=== PATIENT | male | born 1940 | race Caucasian/White ===

== ENCOUNTER 2018-08-30 11:54 | Observation (INO) ==
[2018-08-30 12:58] LABS: Hemoglobin A1C 10.9 % (4.00-6.0)
[2018-08-30 13:15] LABS: Albumin * 2.8 gm/dl (3.4-5.0); Anion Gap 15.9 mmol/L (6.8-13.8); BUN/Creatinine Ratio 19.5 (9.0-21.6); Bilirubin, Total 0.6 mg/dL (0.0-1.1); Ca. Corrected For Albumin 9.6 mg/dL (8.4-10.2); Carbon Dioxide 21.7 mmol/L (24-32.6); Chol/HDL Risk Ratio 2.8 mg/dL (3.3-5.0); Potassium 4.6 mmol/L (3.4-4.6); Total Protein 6.7 gm/dL (6.2-8.2)
[2018-08-30] MEDS: FUROSEMIDE 10 MG/ML VIAL IV SCH ×2 (16:20→22:27)
--- NOTE | 2018-08-30 23:31 | HP ---
Chief Complaint - Chief Complaint Date of Service: 08/30/18 Time of Service: 23:30 Chief Complaint: Shortness of breath, increased edema/weight History of Present Illness: Noa is a 78 yo male with known history of chronic systolic CHF with EF 20-25% who follows with Dr. Springer of Cardiology. Noa reports that he had on his own decreased his lasix from 40mg to 20mg because he was concerned his potassium would go to low. Since that time he has noticed increased weight, swelling in legs, and shortness of breath. He has gained about 20lbs in the past month. He was seen in the Cardiology clinic today by Dr. Springer who sent him over to Dr. Mcbride's clinic today to be admitted for diuresis for CHF exacerbation. He denies chest pain. Medical History (Updated 09/01/18 @ 11:54 by Anthony Kaur DO) Hypertension (Chronic) Onset Date: ~1959 Hyperlipemia (Chronic) Onset Date: Unknown Diabetes mellitus, type II (Chronic) Onset Date: ~2009 Chronic renal insufficiency (Chronic) Onset Date: Unknown Chronic kidney disease, stage III (moderate) (Chronic) Onset Date: ~02/2015 GFR-48 GFR -48 Cardiomyopathy (Chronic) Onset Date: ~01/2015 CAD (coronary artery disease) (Chronic) Onset Date: ~10/15/17 [facility]- post mid Promus 2.75 x 20mm drug eluting stent, with LAD WIRE BOUND BOX MACHINE OPERATOR and OM-2 WIRE BOUND BOX MACHINE OPERATOR Ascending aortic aneurysm (Chronic) Onset Date: Unknown History of stroke Onset Date: Unknown History of stroke with vestibular difficulties Colonoscopy refused Onset Date: Unknown Surgical History: Surgical History (Updated 08/30/18 @ 23:31 by Anthony Kaur DO) H/O echocardiogram Onset Date: ~02/09/15 EF 20-25% H/O hernia repair Onset Date: Unknown At age 4 Family History: Family History (Updated 02/02/18 @ 16:25 by Amy Bo) Father , Age 57 Cerebral hemorrhage Mother , Age 76 uremic poisioning Social History: Patient Lives/Resources With Spouse Utilized Preferred Language O[place]i Do you have any roman catholic or No cultural preference? Smoking Status Former smoker Have you smoked in the past 12 No months Do you dip or chew tobacco No (Last Updated 08/30/18 @ 14:55 by Keven Mcbride MD) No Social History Section defined Review Of Systems (GEN) - Review of Systems Generalized/Overall Review: Present: Weakness. Absent: Chills, Fever EENTM: Present: No Symptoms Reported Respiratory: Present: Cough, Shortness of Breath Cardiac: Present: Edema. Absent: Chest Pain, Palpitations, Syncope Abdominal: Absent: Nausea, Vomiting Genitourinary: Present: No Symptoms Reported Musculoskeletal: Present: No Symptoms Reported Neurological: Present: No Symptoms Reported Skin: Present: No Symptoms Reported Endocrine: Present: No Symptoms Reported Immunizations: IMMUNIZATION HX Immunizations Up to Date Yes History of Influenza Vaccine No Hx Pneumococcal Vaccination No Allergies/Adverse Reactions: Allergies Allergy/AdvReac Type Severity Reaction Status Date / Time No Known Allergies Allergy Verified 08/30/18 16:13 Home Medications: HOME MEDICATIONS Aspirin 81 mg PO DAILY 02/23/15 [Last Taken Unknown] Atorvastatin Calcium 40 mg PO DAILY 02/23/15 [Last Taken Unknown] Famotidine 20 mg PO DAILY 02/23/15 [Last Taken Unknown] carvedilol 25 mg tablet 25 mg PO BID 02/02/18 [Last Taken Unknown] furosemide 20 mg tablet 40 mg PO DAILY tab 03/02/18 [Last Taken Unknown] hydralazine 10 mg tablet 10 mg PO BID tab 03/02/18 [Last Taken Unknown] lisinopril 10 mg tablet 5 mg PO DAILY tab 03/02/18 [Last Taken Unknown] isosorbide mononitrate ER 30 mg tablet,extended release 24 hr 30 mg PO QAM #90 tab 05/18/18 [Last Taken Unknown] glimepiride 2 mg tablet 2 mg PO QAM #90 tab 08/02/18 [Last Taken Unknown] Exam - Exam Vital Signs: Vital Signs - Last Taken Temp 37.0 C 08/30/18 18:43 Pulse 78 08/30/18 18:43 Resp 18 08/30/18 18:43 BP 142/70 08/30/18 18:43 Pulse Ox 95 08/30/18 18:43 Constitutional: Present: Alert, Oriented x3, Cooperative ENT Exam: Present: hearing grossly normal Eye Exam: bilateral eye: normal inspection Respiratory: Present: chest non-tender, no respiratory distress, rales - bilateral base Cardiovascular/Chest: Present: regular rate, rhythm, no murmur Peripheral Pulses: radial (R): 2+, radial (L): 2+ Abdomen: Present: Normal bowel sounds, soft, nontender, nondistended Extremity: Present: lower extremity edema - 3+ bilateral edema Skin Exam: Present: normal color, warm/dry, no cyanosis Diagnostic Studies: Abnormal Lab Results 08/30/18 08/30/18 Range/Units 11:58 11:58 Carbon Dioxide 21.7 L (24-32.6) mmol/L Anion Gap 15.9 H (6.8-13.8) mmol/L BUN 33 H (6-23) mg/dL Creatinine 1.69 H (0.4-1.4) mg/dL Est GFR (Non-Af Amer) 42 L (60-130) mL/min Random Glucose 224 H (70-110) mg/dL Hemoglobin A1c 10.9 H (4.00-6.0) % ALT 16 L (19-67) U/L B-Natriuretic Peptide 90571 H (5-650) pg/mL Albumin 2.8 L (3.4-5.0) gm/dl LDL Cholesterol 44 L (70-130) mg/dL HDL Cholesterol 36 L (40-60) mg/dL Cholesterol/HDL Ratio 2.8 L (3.3-5.0) mg/dL Laboratory Results Sodium 139 mmol/L (132-142) 08/30/18 11:58 Plasma Sodium 141 mmol/L (130-142) 08/30/18 11:58 Potassium 4.6 mmol/L (3.4-4.6) 08/30/18 11:58 Chloride 106 mmol/L (97-106) 08/30/18 11:58 Carbon Dioxide 21.7 mmol/L (24-32.6) L 08/30/18 11:58 Anion Gap 15.9 mmol/L (6.8-13.8) H 08/30/18 11:58 BUN 33 mg/dL (6-23) H 08/30/18 11:58 Creatinine 1.69 mg/dL (0.4-1.4) H 08/30/18 11:58 Est GFR (Non-Af Amer) 42 mL/min (60-130) L 08/30/18 11:58 BUN/Creatinine Ratio 19.5 (9.0-21.6) 08/30/18 11:58 Random Glucose 224 mg/dL (70-110) H 08/30/18 11:58 Mean Blood Glucose 277 mg/dL 08/30/18 11:58 Hemoglobin A1c 10.9 % (4.00-6.0) H 08/30/18 11:58 Calcium 9.0 mg/dL (7.9-10.9) 08/30/18 11:58 Calcium Adj for Albumin 9.6 mg/dL (8.4-10.2) 08/30/18 11:58 Total Bilirubin 0.6 mg/dL (0.0-1.1) 08/30/18 11:58 AST 13 U/L (0-48) 08/30/18 11:58 ALT 16 U/L (19-67) L 08/30/18 11:58 Alkaline Phosphatase 103 U/L (50-170) 08/30/18 11:58 B-Natriuretic Peptide 61294 pg/mL (5-650) H 08/30/18 11:58 Total Protein 6.7 gm/dL (6.2-8.2) 08/30/18 11:58 Albumin 2.8 gm/dl (3.4-5.0) L 08/30/18 11:58 Triglycerides 103 mg/dL (30-200) 08/30/18 11:58 Cholesterol 101 mg/dL (0-200) 08/30/18 11:58 LDL Cholesterol 44 mg/dL (70-130) L 08/30/18 11:58 VLDL Cholesterol 21 mg/dL (5-40) 08/30/18 11:58 HDL Cholesterol 36 mg/dL (40-60) L 08/30/18 11:58 Cholesterol/HDL Ratio 2.8 mg/dL (3.3-5.0) L 08/30/18 11:58 Assessment/Plan - Narrative Narrative: Noa is a 78 yo male with acute on chronic systolic CHF exacerbation due to decreasing his lasix from 40mg to 20mg. Will Diurese with IV 40mg lasix q6hr and monitor edema, weight, shortness of breath, and renal function. Will admit to observation. There is not respiratory distress of failure to meet inpatient criteria. - Assessment/Plan (1) CHF exacerbation Problem: Acute Qualifiers: Heart failure type: systolic Qualified Code(s): I50.23 - Acute on chronic systolic (congestive) heart failure (2) Diabetes mellitus, type II Problem: Chronic Qualifiers: Diabetes mellitus nursing home insulin use: without termite control service representative use Diabetes mellitus complication status: with other specified complication Qualified Code(s): E11.69 - Type 2 diabetes mellitus with other specified complication (3) Chronic kidney disease, stage III (moderate) Problem: Chronic (4) Cardiomyopathy Problem: Chronic Qualifiers: Cardiomyopathy type: ischemic Qualified Code(s): I25.5 - Ischemic cardiomyopathy (5) CAD (coronary artery disease) Problem: Chronic Qualifiers: Coronary Disease-Associated Artery/Lesion type: [place] artery [place] vs. transplanted heart: [place] heart Associated angina: without angina Qualified Code(s): I25.10 - Atherosclerotic heart disease of [place] coronary artery without angina pectoris
[2018-08-31] MEDS: FUROSEMIDE 10 MG/ML VIAL IV SCH ×4 (04:09→21:42)
[2018-08-31] MEDS: hydrALAZINE HCL 10 MG TABLET PO SCH ×2 (10:27→21:42)
[2018-08-31] MEDS: CARVEDILOL 25 MG TABLET PO SCH ×2 (10:28→21:42)
[2018-08-31] MEDS: ASPIRIN 81 MG TAB.CHEW PO SCH (10:28)
[2018-08-31] MEDS: LISINOPRIL 5 MG TABLET PO SCH (10:29)
[2018-08-31] MEDS: FAMOTIDINE 20 MG TABLET PO SCH (10:29)
[2018-08-31 15:09] LABS: Albumin * 2.5 gm/dl (3.4-5.0); Anion Gap 13.8 mmol/L (6.8-13.8); BUN/Creatinine Ratio 19.2 (9.0-21.6); Bilirubin, Total 0.5 mg/dL (0.0-1.1); Ca. Corrected For Albumin 9.5 mg/dL (8.4-10.2); Calcium * 8.6 mg/dL (7.9-10.9); Carbon Dioxide 24.3 mmol/L (24-32.6); Potassium 4.1 mmol/L (3.4-4.6); Total Protein 5.7 gm/dL (6.2-8.2)
[2018-08-31] MEDS ORDERED: ROSUVASTATIN CALCIUM 20 MG TABLET PO SCH (21:00)
--- NOTE | 2018-08-31 23:41 | PN ---
Subjective - Date and Time Seen Date: 08/31/18 Time: 09:00 Subjective Narrative: Noa reports feeling better but still short of breath and having leg swelling. He does not feel is breathing is doing quite well enough to go home. Objective - Vitals Vitals: Last Vital Signs Temp 36.7 C 08/31/18 19:04 Pulse 75 08/31/18 21:42 Resp 18 08/31/18 19:04 BP 148/78 08/31/18 21:42 Pulse Ox 95 08/31/18 19:04 - Abnormal Lab Findings Abnormal Lab Findings: Abnormal Lab Results 08/31/18 Range/Units 14:20 BUN 33 H (6-23) mg/dL Creatinine 1.72 H (0.4-1.4) mg/dL Est GFR (Non-Af Amer) 41 L (60-130) mL/min Random Glucose 272 H (70-110) mg/dL ALT 14 L (19-67) U/L Total Protein 5.7 L (6.2-8.2) gm/dL Albumin 2.5 L (3.4-5.0) gm/dl - Exam Constitutional: Present: Alert, Oriented x3, Cooperative ENT Exam: Present: hearing grossly normal Respiratory: Present: rales - bilateral bases Cardiovascular/Chest: Present: regular rate, rhythm, no murmur Abdomen: Present: Normal bowel sounds, soft, nontender, nondistended Extremity: Present: lower extremity edema - 2+ bilateral Skin Exam: Present: normal color, warm/dry, no cyanosis Assessment/Plan Plan Narrative: Improving, but still too short of breath to discharge to home. Will continue diuresis. Anticipate discharge to home tomorrow. - Problems/Diagnosis (1) Acute on chronic systolic CHF (congestive heart failure) Problem: Acute (2) CAD (coronary artery disease) Problem: Chronic Qualifiers: Coronary Disease-Associated Artery/Lesion type: [place] artery [place] vs. transplanted heart: [place] heart Associated angina: without angina Qualified Code(s): I25.10 - Atherosclerotic heart disease of [place] coronary artery without angina pectoris (3) Cardiomyopathy Problem: Chronic Qualifiers: Cardiomyopathy type: ischemic Qualified Code(s): I25.5 - Ischemic cardiomyopathy (4) Chronic kidney disease, stage III (moderate) Problem: Chronic (5) Diabetes mellitus, type II Problem: Chronic Qualifiers: Diabetes mellitus detention insulin use: without technician terminal and repeater use Diabetes mellitus complication status: with other specified complication Qualified Code(s): E11.69 - Type 2 diabetes mellitus with other specified complication
[2018-09-01] MEDS: FUROSEMIDE 10 MG/ML VIAL IV SCH ×2 (04:25→09:59)
[2018-09-01] MEDS ORDERED: GLIMEPIRIDE 2 MG TABLET PO SCH (09:00)
[2018-09-01] MEDS ORDERED: ISOSORBIDE MONONITRATE 30 MG TAB.SR.24H PO SCH (09:00)
[2018-09-01 09:20] LABS: Albumin * 2.6 gm/dl (3.4-5.0); BUN/Creatinine Ratio 18.5 (9.0-21.6); Bilirubin, Total 0.5 mg/dL (0.0-1.1); Ca. Corrected For Albumin 10.1 mg/dL (8.4-10.2); Calcium * 9.3 mg/dL (7.9-10.9); Carbon Dioxide 28.1 mmol/L (24-32.6); Potassium 4.1 mmol/L (3.4-4.6); Total Protein 6.3 gm/dL (6.2-8.2)
[2018-09-01] MEDS: hydrALAZINE HCL 10 MG TABLET PO SCH (09:23)
[2018-09-01] MEDS: FAMOTIDINE 20 MG TABLET PO SCH (09:24)
[2018-09-01] MEDS: CARVEDILOL 25 MG TABLET PO SCH (09:24)
[2018-09-01] MEDS: LISINOPRIL 5 MG TABLET PO SCH (09:24)
[2018-09-01] MEDS: ASPIRIN 81 MG TAB.CHEW PO SCH (09:24)
--- NOTE | 2018-09-01 11:54 | DS ---
(1) CHF exacerbation Problem: Acute Description of Stay: Noa is a 78 yo male that had recently decreased his lasix from 40mg to 20mg daily on his own. He has since gained about 20lbs. He was seen by his fruit thinner machine operator this week in clinic who sent him to be admitted. He was admitted and placed on Lasix 40mg IV q6hr and diuresed well. He is feeling better today with less edema and resolved shortness of breath. He feels ready to go home. He will resume his Lasix at 40mg daily. Procedures Performed: none Results and Findings: Lab Pending Results 08/30/18 11:58: Sodium 139, Plasma Sodium 141, Potassium 4.6, Chloride 106, Carb on Dioxide 21.7 L, Anion Gap 15.9 H, BUN 33 H, Creatinine 1.69 H, Est GFR (Non- Af Amer) 42 L, BUN/Creatinine Ratio 19.5, Random Glucose 224 H, Calcium 9.0, Calcium Adj for Albumin 9.6, Total Bilirubin 0.6, AST 13, ALT 16 L, Alkaline Phosphatase 103, B-Natriuretic Peptide 68867 H, Total Protein 6.7, Albumin 2.8 L, Triglycerides 103, Cholesterol 101, LDL Cholesterol 44 L, VLDL Cholesterol 21, HDL Cholesterol 36 L, Cholesterol/HDL Ratio 2.8 L 08/30/18 11:58: Mean Blood Glucose 277, Hemoglobin A1c 10.9 H 08/31/18 14:20: Sodium 137, Plasma Sodium 140, Potassium 4.1, Chloride 103, Carbon Dioxide 24.3, Anion Gap 13.8, BUN 33 H, Creatinine 1.72 H, Est GFR (Non- Af Amer) 41 L, BUN/Creatinine Ratio 19.2, Random Glucose 272 H, Calcium 8.6, Calcium Adj for Albumin 9.5, Total Bilirubin 0.5, AST 14, ALT 14 L, Alkaline Phosphatase 93, Total Protein 5.7 L, Albumin 2.5 L 09/01/18 08:59: Sodium 139, Plasma Sodium 141, Potassium 4.1, Chloride 103, Carbon Dioxide 28.1, Anion Gap 12.0, BUN 34 H, Creatinine 1.84 H, Est GFR (Non- Af Amer) 38 L, BUN/Creatinine Ratio 18.5, Random Glucose 253 H, Calcium 9.3, Calcium Adj for Albumin 10.1, Total Bilirubin 0.5, AST 13, ALT 15 L, Alkaline Phosphatase 96, Total Protein 6.3, Albumin 2.6 L Discharge Location: Home Disposition: Home self-care Condition: Good Discharge Activity: Activity as tolerated Discharge Diet: Low salt Referrals: Keven Mcbride MD [Primary Care Provider] - One Week Problem Oriented Discharge Instructions to Patient/Family: CHF Patient Instructions Additional Patient Instructions (free text): -Please make TCM appointment unless intermediate discharge. Thank you! Ashli @ [facility]:[id number]. [facility] contact number [phone]. When you call this number you can schedule an appointment to talk with someone about Medicare options. Complete Home Medications List: Complete Home Medication List: Aspirin 81 mg PO DAILY 02/23/15 Atorvastatin Calcium 40 mg PO DAILY 02/23/15 Famotidine 20 mg PO DAILY 02/23/15 carvedilol 25 mg tablet 25 mg PO BID 02/02/18 furosemide 20 mg tablet 40 mg PO DAILY tab 03/02/18 hydralazine 10 mg tablet 10 mg PO BID tab 03/02/18 lisinopril 10 mg tablet 5 mg PO DAILY tab 03/02/18 isosorbide mononitrate ER 30 mg tablet,extended release 24 hr 30 mg PO QAM #90 tab 05/18/18 glimepiride 2 mg tablet 2 mg PO QAM #90 tab 08/02/18
[2018-09-01 15:26] VITALS: BP 125/68
== END 2018-09-01 15:15 | disposition home or self-care (01) ==
LOC: MS 11:54 → LAB 11:54
PROVIDERS: ADMIT Family Medicine; ATTEND Family Medicine
DX: E11.69 Type 2 diabetes mellitus with other specified complication; N18.3 Chronic kidney disease, stage 3 (moderate); I25.5 Ischemic cardiomyopathy; I25.10 Atherosclerotic heart disease of native coronary artery without angina pectoris; I50.23 Acute on chronic systolic (congestive) heart failure
CPT/HCPCS: 36415; 80053; 80061; 83036; 83519; 83880; 96374; 96375; G0378; G0379

== ENCOUNTER 2019-05-11 15:18 | Observation (INO) ==
[2019-05-11] MEDS ORDERED: FUROSEMIDE 10 MG/ML VIAL IV PRN ×2 (16:05→16:09)
--- NOTE | 2019-05-11 16:49 | PN ---
Vero Note - Interim Date: 05/11/19 Time: 16:47 Narrative: 05/11/19 16:47 I saw and examined Noa Nicolas on 05/11/2019 in the [facility] floor and I agree with the assessment and physical finding of Dr. Mcbride who saw him in the office. His ejection fraction is only 20 to 25%. His hemoglobin is down to 5.7 from 11.7 two months ago. His BNP is 20,000+. With a history of 20 pound weight gain in the last month. His BUN/creatinine is 90/2.5 and while this could be prerenal from his congestive heart failure we will need to consider upper GI bleed as his hemoglobin drop from 11.7 to 5.7 in 2 months time. We will get surgical consult with . We will diurese him and also give him 2 units of packed RBC with Lasix after each bag. We will refer him to palliative/hospice care. Dr. Mcbride's office notes will serve as the H&P for this patient on this admission.
[2019-05-11] MEDS ORDERED: PANTOPRAZOLE SODIUM 40 MG in NORMAL SALINE 100 ML IV SCH (17:00)
[2019-05-11] MEDS ORDERED: FUROSEMIDE 10 MG/ML VIAL IV ONE (17:05)
[2019-05-11] MEDS: hydrALAZINE HCL 10 MG TABLET PO SCH (23:37)
[2019-05-11] MEDS: CARVEDILOL 25 MG TABLET PO SCH (23:38)
[2019-05-12 01:25] LABS: Hemoglobin 6.3 gm/dL (13.5-18.0)
[2019-05-12 01:26] LABS: Hematocrit 20.4 % (42.0-52.0)
[2019-05-12] MEDS ORDERED: GLIMEPIRIDE 2 MG TABLET PO SCH (07:00)
[2019-05-12] MEDS ORDERED: ROSUVASTATIN CALCIUM 20 MG TABLET PO SCH (09:00)
[2019-05-12] MEDS ORDERED: ASPIRIN 81 MG TAB.CHEW PO SCH (09:00)
[2019-05-12] MEDS ORDERED: FAMOTIDINE 20 MG TABLET PO SCH (09:00)
[2019-05-12] MEDS ORDERED: LISINOPRIL 5 MG TABLET PO SCH (09:00)
[2019-05-12] MEDS ORDERED: ISOSORBIDE MONONITRATE 30 MG TAB.SR.24H PO SCH (09:00)
--- NOTE | 2019-05-12 09:05 | CONS ---
[facility] - General Date of Service: 05/12/19 Source: patient, family, RN/MD, RN notes reviewed, old records Exam Limitations: no limitations - History of Present Illness Initial Comments: He went to see Dr. Mcbride ago because he was very fatigued with dyspnea on exertion and noticed marked swelling in his legs. He was found to have a hemoglobin of 5.7 with microcytic hypochromic indices, down from 11.7 in February 2018. He was admitted and has been transfused. His hemoglobin has risen to 6.3. He has never had a colonoscopy Associated Symptoms: weakness Allergies/Adverse Reactions: Allergies No Known Allergies Allergy (Verified 05/11/19 14:52) Home Medications: Home Medications Medication Instructions Recorded Last Taken Famotidine 20 mg PO DAILY 02/23/15 Unknown carvedilol 25 mg tablet 25 mg PO BID 02/02/18 Unknown lisinopril 10 mg tablet 5 mg PO DAILY tab 03/02/18 Unknown hydralazine 10 mg tablet 10 mg PO BID #180 tab 04/17/19 Unknown Isosorbide Mononitrate [Imdur] 1 tab PO DAILY 05/11/19 Unknown Furosemide 80 mg PO DAILY #30 tab 05/12/19 Unknown Potassium Chloride [Klor-Con 10] 10 meq PO DAILY #30 tablet.sa 05/12/19 Unknown glipiZIDE [Glipizide] 5 mg PO DAILY #30 tab 05/12/19 Unknown traMADol HCL [Tramadol HCl] 50 mg PO QID PRN #30 tab 05/12/19 Unknown Procedures Injection or infusion of thrombolytic agent (02/09/15) Measurement of Arterial Saturation, Peripheral, External Approach (02/09/15) Measurement of systemic arterial blood gases (02/09/15) Medications - Medications Current Medications: Current Medications Carvedilol (Coreg) 25 mg PO BID [facility] Stop: 06/10/19 21:01 Last Admin: 05/11/19 23:38 Dose: 25 mg Documented by: Furosemide (Lasix) 20 mg IV ONCE PRN PRN Reason: AFTER 2ND UNIT OF BLOOD Stop: 05/12/19 09:00 Last Admin: 05/12/19 00:22 Dose: 20 mg Documented by: Hydralazine HCl (Apresoline) 10 mg PO BID [facility] Stop: 06/10/19 21:01 Last Admin: 05/11/19 23:37 Dose: Not Given Documented by: Pantoprazole Sodium 40 mg/ (Sodium Chloride) 100 mls @ 400 mls/hr IV Q24H TYRELL Stop: 06/10/19 17:01 Last Infusion: 05/11/19 17:55 Dose: Infused Documented by: Review of Systems - Review of Systems Generalized/Overall Review: Present: Weakness, Weight gain. Absent: Chills, Fever EENTM: Present: No Symptoms Reported Respiratory: Present: Shortness of Breath, Other - Dyspnea on exertion. Absent: Cough Cardiac: Present: Edema, Other - His ejection fraction is only 20 to 25%. He has not had anginal type chest pain since his stents were placed. Absent: Chest Pain, Palpitations Abdominal: Present: Other - He has occasional heartburn couple times a week. He used to get a lot of heartburn when he chewed tobacco. He got very constipated when he used to eat Tea leaves, but that is better. He has never seen blood in his bowel movements and denies abdominal pain. Absent: Abdominal Pain, Melena, Bright blood from rectum Genitourinary: Present: Other - He had problems with voiding before, but not so much now Musculoskeletal: Present: Other - Chronic stable arthritic complaints Neurological: Present: No Symptoms Reported Skin: Present: No Symptoms Reported Physical Examination - Exam Vital Signs: Vital Signs - Last Taken Temp 36.9 C 05/12/19 06:55 Pulse 70 05/12/19 06:55 Resp 16 05/12/19 06:55 BP 107/45 05/12/19 06:55 Pulse Ox 98 05/12/19 06:55 O2 Oxygen Delivery Method Room Air Constitutional: Present: Alert, Oriented x3, Cooperative, Well developed, No distress ENT Exam: Present: normal ENT inspection Eye Exam: bilateral eye: normal inspection Neck: Present: full range of motion, normal inspection Respiratory: Present: no respiratory distress Cardiovascular/Chest: Present: regular rate, rhythm Abdomen: Present: other - Denies pain or tenderness /Rectal: Present: Exam deferred Extremity: Present: normal range of motion, pedal edema Skin Exam: Present: pallor Neurologic: Present: no motor/sensory deficits Appearance: Present: appropriate appearance, appropriate insight, neat, no memory impairment Eye contact: Present: cooperative, good eye contact, normal speech Thoughts: Present: normal thought pattern - Results and Findings: Lab/Microbiology results last 24 hrs: Abnormal/Pending Laboratory Last 24 HRS 05/12/19 05/11/19 01:15 16:20 Hgb 6.3 L* Hct 20.4 L* Crossmatch See Detail - Assessments/Findings (1) Anemia Diagnosis(s): He has not seen blood in his bowel movements. He has been resistant to having colonoscopy in the past. He does have some GERD symptoms. A stool for occult blood has been ordered Pamphlets on EGD and colonoscopy were reviewed with him and given to him. The rationale for upper and lower GI endoscopy was explained. He has not sure that he wants to pursue any extensive testing at this time. EGD and colonoscopy could be arranged as an outpatient if he decides to do that. He would be interested in discussing palliative care or hospice. He will consider his options. I will visit with him later today. I have discussed the case with case management and Dr Skinner. Problem: Acute Qualifiers: Anemia type: iron deficiency Iron deficiency anemia type: chronic blood loss Qualified Code(s): D50.0 - Iron deficiency anemia secondary to blood loss (chronic)
[2019-05-12] MEDS ORDERED: POTASSIUM CHLORIDE 10 MEQ TABLET.SA PO SCH (09:45)
[2019-05-12 10:17] LABS: Anion Gap 17.4 mmol/L (6.8-13.8); Calcium * 8.3 mg/dL (7.9-10.9); Carbon Dioxide 17.7 mmol/L (24-32.6); Estimated Creat Clear 26.6; Potassium 4.1 mmol/L (3.4-4.6)
[2019-05-12] MEDS ORDERED: FUROSEMIDE 10 MG/ML VIAL IV ONE (10:21)
[2019-05-12] MEDS: CARVEDILOL 25 MG TABLET PO SCH (10:31)
[2019-05-12] MEDS: hydrALAZINE HCL 10 MG TABLET PO SCH (10:31)
--- NOTE | 2019-05-12 10:48 | DS ---
Date of Discharge:: 05/12/19 Hospital Course: Noa Nicolas is a 78 year white male with past medical history of diabetes mellitus type 2, congestive heart failure, anemia, who was admitted on 05/11/2019 because of shortness of breath with mild exertion. The patient presented to his primary care physician's office in a wheelchair. He reported that he becomes short of breath with mild exertion. He also reportsedthat he becomes "wobbly" when walking. He denied dizziness with exertion. The patient experienced weight gain of 20 pounds in the last month and increased lower extremity edema since March. He tried taking 1.5 tablets furosemide daily. He stated that he urinated more frequently, however, he did not lose weight. He is scheduled to see Dr. Springer in July 2019. The patient denied waking up short of breath. He has to sleep in a recliner due to hip pain. When his primary care physician did blood work on him he was found to have a hemoglobin of 5.7 and a BNP of 20,000+. He was then directly admitted to the floor. The patient was started on IV diuresis and blood transfusion of 2 units packed RBC. He was re ferred to Dr. Ace and for evaluation and treatment and possible endoscopic procedure. The patient was not really sure whether he wants to be aggressive with the management of his anemia. A palliative/hospice care consult was done. He has decided to just go on hospice care but agrees to having another 2 units of packed RBC transfused today. He did have hypoglycemia this morning likely due to his long-acting glimepiride from yesterday morning and the fact that he was put n.p.o. on admission. We will change his glimepiride to glipizide on discharge. From yesterday we will continue with his IV diuresis and will discharge him home for hospice care after his 2 units of blood. Procedures Performed: none Results and Findings: Lab Pending Results 05/11/19 16:20: Blood Type O Positive, Antibody Screen Negative, Crossmatch See Detail 05/12/19 01:15: Hgb 6.3 L*, Hct 20.4 L* 05/12/19 10:02: Sodium 137, Plasma Sodium 137, Potassium 4.1, Chloride 106, Carbon Dioxide 17.7 L, Anion Gap 17.4 H, BUN 89 H, Creatinine 2.47 H, Est GFR (Non-Af Amer) 27 L, BUN/Creatinine Ratio 36.0 H, Random Glucose 103 D, Calcium 8.3 Discharge Location: Home Disposition: Hospice Home Home Health Agency: [facility] Hospice Condition: Poor Discharge Activity: Activity as tolerated Discharge Diet: Low salt Referrals: Keven Mcbride MD [Primary Care Provider] - Additional Patient Instructions (free text): [facility] Home Health and Hospice new at discharge, please call and fax discharge orders to them. Prescriptions (Any new or edited meds): Furosemide 80 mg PO DAILY #30 tab Transmission Status: Received by [facility] Mail Delivery glipiZIDE [Glipizide] 5 mg PO DAILY #30 tab Transmission Status: Received by [facility] Mail Delivery Potassium Chloride [Klor-Con 10] 10 meq PO DAILY #30 tablet.sa Transmission Status: Received by [facility] Mail Delivery traMADol HCL [Tramadol HCl] 50 mg PO QID PRN #30 tab PRN Reason: Pain Prescription Printed Complete Home Medications List: Complete Home Medication List: Famotidine 20 mg PO DAILY 02/23/15 carvedilol 25 mg tablet 25 mg PO BID 02/02/18 lisinopril 10 mg tablet 5 mg PO DAILY tab 03/02/18 hydralazine 10 mg tablet 10 mg PO BID #180 tab 04/17/19 Isosorbide Mononitrate [Imdur] 1 tab PO DAILY 05/11/19 Furosemide 80 mg PO DAILY #30 tab 05/12/19 Potassium Chloride [Klor-Con 10] 10 meq PO DAILY #30 tablet.sa 05/12/19 glipiZIDE [Glipizide] 5 mg PO DAILY #30 tab 05/12/19 traMADol HCL [Tramadol HCl] 50 mg PO QID PRN #30 tab 05/12/19
[2019-05-12] MEDS: FUROSEMIDE 10 MG/ML VIAL IV PRN ×2 (13:59→17:15)
[2019-05-12 16:52] VITALS: BP 101/56
[2019-05-13] MEDS ORDERED: FUROSEMIDE 10 MG/ML VIAL IV SCH (09:00)
== END 2019-05-12 17:41 | disposition hospice, home (50) ==
LOC: MS → EDSTATUS 15:37
PROVIDERS: ADMIT Internal Medicine; ATTEND Internal Medicine
CPT/HCPCS: 36415; 36430; 80048; 85014; 85018; 86850; 87081; 96365; 96375; G0378; G0379; P9016